=== PATIENT | female | born 1995 | race Caucasian/White ===

== ENCOUNTER 2020-08-13 13:53 | Emergency (ER) | payer OTHER, SELFPAY ==
[2020-08-13 13:59] VITALS: BP 143/93; PULSE 116; RESP 20; TEMP 36.8; O2SAT 99
[2020-08-13 15:43] VITALS: PULSE 119
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
[2020-08-13] MEDS: SODIUM CHLORIDE 0.9% IV 1,000 ML 999 ML IV CONT (16:06)
[2020-08-13] MEDS: FAMOTIDINE 20 MG/2 ML VIAL IV PUSH (16:06)
[2020-08-13] MEDS: METOCLOPRAMIDE HCL INJ 10 MG/2 ML VIAL IV PUSH (16:06)
[2020-08-13 16:25] VITALS: BP 106/75; PULSE 95; RESP 18; O2SAT 99
[2020-08-13 18:00] VITALS: BP 122/79; PULSE 98; RESP 20; O2SAT 98
[2020-08-13 19:12] VITALS: BP 106/57; PULSE 86
== END 2020-08-13 19:12 | disposition home or self-care (01) ==
PROVIDERS: Emergency Provider Emergency Medicine; PCP Family Medicine
DX: R51.9 Headache, unspecified (principal); M54.2 Cervicalgia; Z86.16 Personal history of COVID-19; E07.81 Sick-euthyroid syndrome; E66.9 Obesity, unspecified
CPT/HCPCS: 96361; 96365; 96375; 99284; J0131; J2765; J7030

== ENCOUNTER 2020-11-16 13:29 | Outpatient (CLI) | payer OTHER, SELFPAY ==
--- NOTE | 2020-11-16 13:58 | ECHO_ITS ---
Patient Info Name: Liz Luevano Age: 25 years : 1995 Gender: Female Ht: 68 in Wt: 220 lbs BSA: 2.22 m2 HR: 111 bpm BP: 141 / 93 mmHg Technical Quality: Fair Exam Date: 11/16/2020 2:10 PM Exam Location: [facility] Patient Status: Outpatient Admit Date: 11/16/2020 Staff Ordering Physician: Stone Herrera DO Epic Application Coordinator: Maria Elena Gomez RDCS Attending Provider: Stone Herrera DO Referring Physician: Javier GARCIA; Exam Type: CA echo doppler color flow Study Info Indications - palpitations Complete two-dimensional, color flow and Doppler transthoracic echocardiogram is performed. Summary 1. Complete two-dimensional, color flow and Doppler transthoracic echocardiogram is performed. 2. Left ventricular chamber dimension is normal. 3. Left ventricular systolic function is normal, estimated at 65-70%. 4. The left ventricular diastolic function is normal. 5. E/e' 7 is not elevated. 6. No pulmonary hypertension, estimated pulmonary arterial systolic pressure is 20 mmHg. Left Ventricle E/e' 7 is not elevated. Left ventricular chamber dimension is normal. Left ventricular systolic function is normal, estimated at 65-70%. The left ventricular diastolic function is normal. Right Ventricle Right ventricular chamber dimension is normal. Right ventricular systolic function is normal. Left Atria Left atrial chamber dimension is normal. Right Atria Right atrial chamber dimension is normal. Aortic Valve The aortic valve is trileaflet. There is no aortic valve stenosis. There is no aortic valve regurgitation. Pulmonic Valve There is no pulmonic regurgitation. Mitral Valve There is no mitral valve stenosis. There is no mitral valve regurgitation. Tricuspid Valve There is no tricuspid valve regurgitation. No pulmonary hypertension, estimated pulmonary arterial systolic pressure is 20 mmHg. Pericardium/Pleural There is no pericardial effusion. Inferior Vena Cava Normal inferior vena cava with >50% collapse upon inspiration consistent with normal right atrial pressure, 5 mmHg. Aorta The aortic root size at the sinus of Valsalva is normal. Left Ventricular Outflow Tract Name Value Normal LVOT 2D LVOT Diameter 2.0 cm LVOT Doppler LVOT Peak Gradient 5 mmHg LVOT Mean Gradient 3 mmHg LVOT VTI 20 cm LVOT VTI/AV VTI Ratio 0.9 LVOT Stroke Volume 61 ml LVOT CO 16.3 l/min LVOT CI 7.4 l/min/m2 Pulmonic Valve Name Value Normal PV Doppler PV Peak Gradient 6 mmHg Mitral Valve Name Value
== END 2020-11-16 13:30 | disposition home or self-care (01) ==
LOC: ANHCARD 13:30
PROVIDERS: PCP Family Medicine; Visit Provider Internal Medicine Cardiovascular Disease
DX: R00.2 Palpitations (principal)
CPT/HCPCS: 93306

== ENCOUNTER 2021-04-17 12:33 | Outpatient (CLI) | payer OTHER, SELFPAY ==
--- NOTE | ~2021-04-17 | US_ITS ---
EXAMINATION: US pelvic complete w TV DATE: 04/17/2021 13:16 INDICATION: Excessive menstruation Comparison:Ultrasound dated 03/23/2013 TECHNIQUE: Multiple transabdominal and endovaginal sonographic images of the pelvis performed. FINDINGS: The uterus measures 5.8 x 3.5 x 4.5 cm. The endometrial complex measures 6 mm. There are hypoechoic masses of the uterus consistent with uterine fibroids, largest measuring 2 x 1.6 x 1.8 cm. Right ovary measures 2.7 x 1.6 x 1.5 normal vascularity and follicular changes. Left ovary is not def initely visualized. There is no free fluid in the pelvis. There are no abnormal masses seen on either side. IMPRESSION: 1. Uterine fibroids, largest measuring 2 cm greatest dimension. Reviewed, dictated and finalized at location A. OLOGY NURSE
== END 2021-04-17 12:34 | disposition home or self-care (01) ==
LOC: ANHIMG 12:36
PROVIDERS: PCP Family Medicine; Visit Provider Physician Assistant Medical
DX: N92.0 Excessive and frequent menstruation with regular cycle (principal)
CPT/HCPCS: 76830; 76856

== ENCOUNTER 2021-10-06 11:46 | Emergency (ER) | payer OTHER, SELFPAY ==
[2021-10-06 12:12] VITALS: BP 138/87; PULSE 113; RESP 16; TEMP 36.8; O2SAT 99
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
== END 2021-10-06 12:38 | disposition home or self-care (01) ==
PROVIDERS: Emergency Provider Nurse Practitioner; PCP Family Medicine
DX: S90.811A Abrasion, right foot, initial encounter (principal); W54.8XXA Other contact with dog, initial encounter; Q79.60 Ehlers-Danlos syndrome, unspecified; E66.9 Obesity, unspecified; Z68.34 Body mass index [BMI] 34.0-34.9, adult; Z86.16 Personal history of COVID-19; F41.9 Anxiety disorder, unspecified; F32.A Depression, unspecified
CPT/HCPCS: 99212; G0463

== ENCOUNTER 2023-03-10 07:53 | Outpatient (CLI) | payer OTHER, SELFPAY ==
--- NOTE | 2023-03-10 08:02 | ECG_ITS ---
Measurements Intervals [place] Rate: 102 P: 27 MI: 210 QRS: 4 QRSD: 85 T: 11 QT: 346 QTc: 451 Interpretive Statements SINUS TACHYCARDIA WITH FIRST DEGREE AV BLOCK VOLTAGE CRITERIA FOR LVH BORDERLINE T WAVE ABNORMALITY- INFERIOR LEADS BASELINE ARTIFACT- I, II, III, AVR, AVL, AVF BORDERLINE ECG NO PREVIOUS ECG AVAILABLE FOR COMPARISON Electronically Signed On 03-10-2023 10:01:39 RESEARCH METHODOLOGIST by Stone Herrera D.O.
[2023-03-10 08:27] LABS: Hemoglobin 9.9 g/dL (12.0-15.0); Mean Corpuscular Hemoglobin 24.4 pg (26-34); Mean Corpuscular Volume 81.3 fl (80-100); Mean Platelet Volume 10.7 fl (7.4-10.4); Platelet Count Result 365 k/mm3 (150-375); Red Blood Count 4.06 M/mm3 (4.2-5.4); Red Cell Distribution Width 14.6 % (11.5-14.5)
== END 2023-03-10 07:54 | disposition home or self-care (01) ==
LOC: ANHSURGERY 07:58
PROVIDERS: PCP Family Medicine; Visit Provider Obstetrics & Gynecology
DX: G90.A Postural orthostatic tachycardia syndrome [POTS] (principal); R93.41 Abnormal radiologic findings on diagnostic imaging of renal pelvis, ureter, or bladder; N93.9 Abnormal uterine and vaginal bleeding, unspecified
CPT/HCPCS: 36415; 85027; 93005

== ENCOUNTER 2023-03-13 01:48 | Day surgery (SDC) | payer OTHER, SELFPAY ==
[2023-03-05 10:26] VITALS: BMI 38.2
--- NOTE | 2023-03-05 11:13 | PC.NURSE ---
Report to the Outpatient Waiting Room, entrance under the green pavilion located off [facility], at 0600 on 03-13-23. Planned Procedure Time: 0730. Time changes happen often and if your time is changed the preop area will call you the afternoon before. - You and your visitor will be asked to self-screen and do not enter if you have any COVID symptoms. - A mask is optional within the hospital at this time. Patients may have clear liquids (water, carbonated beverages, clear teas, apple juice) until 3 hours prior to surgery with a maximum of 20 ounces. 0430 - No food from midnight until time of surgery - Infants may have breast milk until 4 hours before surgery, formula 6 hours prior to surgery. - Children will be allowed to drink immediately following surgery. If applicable, please bring a bottle or sippy cup to assist with drinking. Juice, water, soda, and popsicles are readily available. For infants on formula, please bring formula the day of surgery. Pacifiers are allowed. Take the following medications with a SIP of water the morning of surgery: Fluoxetine, control, tylenol if needed DO NOT STOP ANY OF YOUR OTHER PRESCRIPTION MEDICATIONS PRIOR TO SURGERY ?EXCEPT THE FOLLOWING Medications to discontinue per physician: Vitamins and supplements Date to take last dose: 03-10-23 Please no make-up, nail romanian, hairspray, perfume, deodorant, or body powder the day of surgery. No jewelry (including any body piercings) or valuables the day of surgery, leave them at home. Please take a shower or bath the night before, or the morning of, surgery with an antibacterial soap. Wear comfortable, loose fitting clothing. Children are encouraged to wear pajamas. - Jewelry must be removed prior to entering the operating room. Rings and piercings that are not removed may be cut off. - The hospital will not accept responsibility for valuables. - Please leave all valuables, including medications, at home the day of surgery. If you are going home after surgery, a licensed local driver must drive you home. - NO public transportation without another adult if you receive anesthesia. - We recommend that an adult stay with you for 24 hours following discharge. - We also recommend that you do not drive, make important decision, drink alcoholic beverages, or take any drugs that were not prescribed by your health care provider for at least 24 hours after your discharge time. For Pediatric surgeries, we recommend two adults accompany the child home. Follow any additional instructions given to you from your surgeon. If you or anyone in your household have experienced Covid symptoms in the past week, please notify your surgeon or the nurse liaison at the phone number below for possible testing. Telephone instructions given to Liz Luevano and asked if any additional questions and then verbalized understanding. Patient advised to call surgeon office or pre surgery nurse liaison [phone] if any additional questions.
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
[2023-03-13] VITALS (10 sets, daily range): BP systolic 121–147; BP diastolic 62–96; PULSE 99–120; RESP 14–24; TEMP 36.2–36.9; O2SAT 94–100
[2023-03-13] MEDS: KETOROLAC 15 MG/ML VIAL (*BKC) IV PUSH (06:45)
[2023-03-13] MEDS: LACTATED RINGERS 1,000 ML 30 ML IV CONT ×2 (06:45→08:23)
[2023-03-13] MEDS: ACETAMINOPHEN 500 MG TABLET 1000 MG PO (06:45)
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
--- NOTE | 2023-03-13 07:14 | WPDHPUPDATE1 ---
History and Physical Update Update Date/Time: 03/13/23 07:14 History and Physical has been reviewed, including an updated exam of the patient. There are NO changes in the patient's condition. Risks, benefits, and alternatives have been discussed and questions answered. Patient agrees to proceed with procedure.
[2023-03-13] MEDS: SCOPOLAMINE 1.5 MG PATCH TRANSDERM (07:21)
--- NOTE | 2023-03-13 08:18 | W.PM.PROC2 ---
Procedure Note - Detailed Date of Procedure 03/13/23 Pre-op Diagnosis 1. Menometrorrhagia 2. Undesired fertility Post-op Diagnosis Same Procedure Performed 1. Hysteroscopy with uterine curettings 2. Endometrial ablation 3. Bilateral salpingectomy Surgeon Efren Loya MD Anesthesia General Findings Uterus tubes ovaries without abnormality Description of Procedure Patient prepped draped usual manner for this procedure. Instruments attach the cervix for uterine mobility throughout the case. Periumbilical and lower trocar incisions were made and trocars were placed under direct visualization. The mesial salpinx was cauterized and cut bilaterally and the tubes removed without difficulty. There was no bleeding. Gas was allowed to escape, trocars removed, and incisions approximated using 4-0 Monocryl. Attention was then placed to the cervix which was dilated to allow the hysteroscope to be placed. Hysteroscopic exam revealed no significant abnormalities, curetting was obtained, and Colleen instrument was placed and cavity assessment performed. Instrument was activated, at the end of the procedure hysteroscopic exam again used to inspect cavity with no abnormalities noted. Patient was then sent to recovery room in stable condition. Estimated Blood Loss 10 Drains No Packing No Pathology Yes Complications No immediate complications Condition Stable Disposition PACU [facility] Billing Surgery - Charge Forward: Surgery Billing
[2023-03-13] MEDS: fentaNYL CITRATE INJ (*CRX) 100 MCG/2 ML VIAL 25 MCG IV PUSH ×8 (08:50→09:23)
[2023-03-13] MEDS: oxyCODONE HCL (*CRX) 5 MG TAB IR PO (09:45)
== END 2023-03-13 10:25 | disposition home or self-care (01) ==
PROVIDERS: PCP Family Medicine; Visit Provider Obstetrics & Gynecology
PROC: 0U5B8ZZ Destruction of Endometrium, Via Natural or Artificial Opening Endoscopic (ICD-10-PCS; CPT 58563; principal; 2023-03-13 07:30)
PROC: (CPT 49320; 2023-03-13 07:30)
DX: Z30.2 Encounter for sterilization (principal); N87.9 Dysplasia of cervix uteri, unspecified; N92.0 Excessive and frequent menstruation with regular cycle; F41.9 Anxiety disorder, unspecified; F32.A Depression, unspecified; Q79.60 Ehlers-Danlos syndrome, unspecified; E07.81 Sick-euthyroid syndrome; F12.90 Cannabis use, unspecified, uncomplicated; Z82.49 Family history of ischemic heart disease and other diseases of the circulatory system; Z80.0 Family history of malignant neoplasm of digestive organs; E66.9 Obesity, unspecified; Z68.38 Body mass index [BMI] 38.0-38.9, adult
CPT/HCPCS: 58563; 58661; 88302; 88305; 88313; 88342; A9270; J0330; J1100; J1885; J2250; J2405; J2704; J3010; J7030; J7120

== ENCOUNTER 2023-10-23 11:13 | Outpatient (CLI) | payer OTHER, SELFPAY ==
--- NOTE | ~2023-10-23 | US_ITS ---
EXAMINATION: US pelvic complete w TV DATE: 10/23/2023 13:34 INDICATION: Abnormal uterine and vaginal bleeding TECHNIQUE: Multiple transabdominal and endovaginal sonographic images of the pelvis were obtained. COMPARISON: 08/20/2023 FINDINGS: The uterus measures 7.4 x 3.9 x 5.6 cm. The endometrial complex measures 6 mm in thickness. No inter abby change in a 2.1 x 1.8 x 1.7 cm hypoechoic fibroid at the uterine fundus. There are prominent bila teral parametrial vessels. The right and left ovaries are not visualized. There is no free fluid in t he pelvis. IMPRESSION: 1. Unchanged 2.1 cm fibroid at the uterine fundus. Reviewed, dictated and finalized at location A.
[2023-10-23 11:31] LABS: Basophils Absolute Auto 0.1 K/mm3 (0.0-0.1); Basophils Percent Auto 0.6 % (0.2-1.2); Eosinophils Absolute Auto 0.1 K/mm3 (0-0.3); Eosinophils Percent Auto 1.3 % (0-4.4); Hematocrit 36.1 % (37.0-47.0); Hemoglobin 11.3 g/dL (12.0-15.0); Immature Granulocyte Absolute 0.02 K/mm3 (0.00-0.031); Immature Granulocyte Percent A 0.2 % (0-0.5); Lymphocytes Absolute Auto 3.19 K/mm3 (0.9-3.2); Lymphocytes Percent Auto 36.5 % (18.3-44.2); Mean Corpuscular HGB Conc 31.3 g/dl (32-36); Mean Corpuscular Hemoglobin 25.9 pg (26-34); Mean Corpuscular Volume 82.8 fl (80-100); Mean Platelet Volume 10.7 fl (7.4-10.4); Monocytes Absolute Auto 0.5 K/mm3 (0.1-0.6); Monocytes Percent Auto 5.6 % (2.6-8.5); Neutrophils Absolute Auto 4.9 K/mm3 (1.3-6.7); Neutrophils Percent Auto 55.8 % (45.5-73.1); Platelet Count Result 301 k/mm3 (150-375); Red Blood Count 4.36 M/mm3 (4.2-5.4); Red Cell Distribution Width 15.6 % (11.5-14.5); White Blood Count 8.7 K/mm3 (4.5-10.0)
== END 2023-10-23 11:14 | disposition home or self-care (01) ==
PROVIDERS: PCP Family Medicine; Visit Provider Obstetrics & Gynecology
DX: N92.0 Excessive and frequent menstruation with regular cycle (principal); N93.9 Abnormal uterine and vaginal bleeding, unspecified; N99.85 Post endometrial ablation syndrome; D25.9 Leiomyoma of uterus, unspecified
CPT/HCPCS: 36415; 76830; 76856; 85025

== ENCOUNTER 2023-10-24 11:08 | Outpatient (CLI) | payer OTHER, SELFPAY | END 2023-10-24 11:09 | disposition home or self-care (01) | LOC: ANHSURGERY 11:13 | PROVIDERS: Visit Provider Obstetrics & Gynecology | DX: N92.0 Excessive and frequent menstruation with regular cycle (principal); Z01.818 Encounter for other preprocedural examination | CPT/HCPCS: 36415; 86850; 86900; 86901 ==

== ENCOUNTER 2023-10-30 01:04 | Day surgery (SDC) | payer OTHER, SELFPAY ==
[2023-10-23 13:14] VITALS: BMI 41.8
--- NOTE | 2023-10-23 13:16 | PC.NURSE ---
Report to the Outpatient Waiting Room, entrance under the green pavilion located off [facility], at time _0615_ on date _[id number]_. Planned Procedure Time: _0815_. Time changes happen often and if your time is changed the preop area will call you the afternoon before. - You and your visitor will be asked to self-screen and do not enter if you have any COVID symptoms. - A mask is optional within the hospital at this time. Patients may have clear liquids (water, carbonated beverages, clear teas, apple juice) until 3 hours prior to surgery with a maximum of 20 ounces. - No food from midnight until time of surgery Take the following medications with a SIP of water the morning of surgery: ___Fluoxetine DO NOT STOP ANY OF YOUR OTHER PRESCRIPTION MEDICATIONS PRIOR TO SURGERY ?EXCEPT THE FOLLOWING Medications to discontinue per physician Vitamin d3____ Date to take last piag__[id number] Please no make-up, nail cuban, hairspray, perfume, deodorant, or body powder the day of surgery. No jewelry (including any body piercings) or valuables the day of surgery, leave them at home. Please take a shower or bath the night before, or the morning of, surgery with an antibacterial soap. Wear comfortable, loose fitting clothing. - Jewelry must be removed prior to entering the operating room. Rings and piercings that are not removed may be cut off. - The hospital will not accept responsibility for valuables. - Please leave all valuables, including medications, at home the day of surgery. If you are going home after surgery, a licensed lumber driver must drive you home. - NO public transportation without another adult if you receive anesthesia. - We recommend that an adult stay with you for 24 hours following discharge. - We also recommend that you do not drive, make important decision, drink alcoholic beverages, or take any drugs that were not prescribed by your health care provider for at least 24 hours after your discharge time. Follow any additional instructions given to you from your surgeon. If you or anyone in your household have experienced Covid symptoms in the past week, please notify your surgeon or the nurse liaison at the phone number below for possible testing. Telephone instructions given to _Liz__and asked if any additional questions and then verbalized understanding. Patient advised to call surgeon office or pre surgery nurse liaison [phone] if any additional questions.
[2023-10-30] VITALS (11 sets, daily range): BP systolic 111–168; BP diastolic 60–96; PULSE 91–121; RESP 12–34; TEMP 36.3–37.6; O2SAT 92–100
[2023-10-30] MEDS: LACTATED RINGERS 1,000 ML 30 ML IV CONT ×2 (06:20→10:05)
[2023-10-30] MEDS: ACETAMINOPHEN 500 MG TABLET 1000 MG PO (06:27)
[2023-10-30] MEDS: KETOROLAC 15 MG/ML VIAL (*BKC) IV PUSH (06:27)
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
[2023-10-30] MEDS: SCOPOLAMINE 1 MG PATCH 1 PATCH TRANSDERM (07:31)
--- NOTE | 2023-10-30 08:24 | WPDHPUPDATE1 ---
History and Physical Update Update Date/Time: 10/30/23 08:24 History and Physical has been reviewed, including an updated exam of the patient. There are NO changes in the patient's condition. Risks, benefits, and alternatives have been discussed and questions answered. Patient agrees to proceed with procedure.
[2023-10-30] MEDS: ceFAZolin 2 GM/D5W 50 ML 2 GM/50 ML BAG IVPB (08:34)
--- NOTE | 2023-10-30 10:02 | W.PM.PROC2 ---
Procedure Note - Detailed Date of Procedure 10/30/23 Pre-op Diagnosis 1. Menometrorrhagia 2. Dysmenorrhea 3. Failed endometrial ablation Post-op Diagnosis Same Procedure Performed Robotic assisted laparoscopic total hysterectomy with ovarian preservation Surgeon Efren Loya MD Anesthesia General Findings Tubes surgically absent, ovaries without abnormality. Uterus mildly enlarged and boggy consistent with adenomyosis. Description of Procedure Patient prepped and draped usual manner for this procedure. Cervical instruments were placed for uterine mobility throughout the case. Abdominal trocar sites were marked and trocars placed under direct visualization. These trocars were then attached to the de Yadi system. Pelvis was inspected and round ligaments were cauterized and cut, anterior portion dissected to develop the bladder flap. Posterior portion dissected to skeletonize the uterine vessels. These vessels were then cauterized and cut. Anterior colpotomy incision was made this was carried circumferentially to separate the cervix from the vagina. Uterus was delivered into the vagina. There was no bleeding at this point. Vaginal cuff was closed using V lock suture from the right angle to the midline with good approximation and hemostasis noted. Irrigation was undertaken. Marcus was placed over the incision on the vagina empirically. Of note there was fluid in the cul-de-sac which was slightly tinged at the beginning of the case and this was initially sent for culture and cytology. Estimated Blood Loss 100 Drains No Packing No Pathology Yes Complications No immediate complications Condition Stable Disposition PACU [facility] Billing Surgery - Charge Forward: Surgery Billing
--- NOTE | 2023-10-30 10:27 | SUR.PHASEI ---
1025: Simple mask removed.
[2023-10-30] MEDS: fentaNYL CITRATE INJ (*CRX) 100 MCG/2 ML VIAL 25 MCG IV PUSH ×7 (10:34→11:23)
[2023-10-30] MEDS: SIMETHICONE 80 MG TAB.CHEW PO ×2 (11:48→17:30)
[2023-10-30] MEDS: KETOROLAC 30 MG/ML VIAL (*BKC) IV PUSH ×3 (11:49→23:18)
[2023-10-30] MEDS: HYDROcodone/acetaminophen (*CRX) 10-325 MG TABLET 1 TAB PO ×3 (11:49→23:18)
[2023-10-30] MEDS: DEXTROSE 5%/0.45% SOD CHL 1,000 ML 125 ML IV CONT (11:49)
--- NOTE | 2023-10-30 16:49 | PC.NURSE ---
Dr. Loya here to see patient.
[2023-10-30] MEDS: HYDROcodone/acetaminophen (*CRX) 5-325 MG TABLET 1 TAB PO (20:54)
[2023-10-31] MEDS: HYDROcodone/acetaminophen (*CRX) 10-325 MG TABLET 1 TAB PO (02:30)
[2023-10-31 05:15] LABS: Basophils Percent Auto 0.1 % (0.2-1.2); Hemoglobin 10.8 g/dL (12.0-15.0); Immature Granulocyte Absolute 0.05 K/mm3 (0.00-0.031); Immature Granulocyte Percent A 0.4 % (0-0.5); Lymphocytes Absolute Auto 1.33 K/mm3 (0.9-3.2); Lymphocytes Percent Auto 9.3 % (18.3-44.2); Mean Corpuscular HGB Conc 30.9 g/dl (32-36); Mean Corpuscular Hemoglobin 26.2 pg (26-34); Mean Platelet Volume 11.4 fl (7.4-10.4); Monocytes Absolute Auto 0.6 K/mm3 (0.1-0.6); Monocytes Percent Auto 4.2 % (2.6-8.5); Neutrophils Absolute Auto 12.3 K/mm3 (1.3-6.7); Platelet Count Result 325 k/mm3 (150-375); Red Blood Count 4.12 M/mm3 (4.2-5.4); Red Cell Distribution Width 16.1 % (11.5-14.5); White Blood Count 14.3 K/mm3 (4.5-10.0)
[2023-10-31] MEDS: SIMETHICONE 80 MG TAB.CHEW PO (08:58)
[2023-10-31] MEDS: FLUoxetine HCL 20 MG CAPSULE 40 MG PO (08:59)
[2023-10-31] MEDS: CHOLECALCIFEROL 1,000 UNITS TABLET 1000 UNITS PO (08:59)
[2023-10-31] MEDS: PANTOPRAZOLE 40 MG TABLET PO (08:59)
[2023-10-31] MEDS: HYDROcodone/acetaminophen (*CRX) 5-325 MG TABLET 1 TAB PO (08:59)
[2023-10-31] MEDS: IBUPROFEN 600 MG TABLET PO (08:59)
[2023-10-31 09:14] VITALS: BP 125/70; PULSE 105; RESP 18; TEMP 36.6; O2SAT 98
== END 2023-10-31 11:30 | disposition home or self-care (01) ==
LOC: ANHSURGERY 07:32 → ANHOB2 11:33
PROVIDERS: Visit Provider Obstetrics & Gynecology
PROC: (CPT 58570; principal; 2023-10-30 08:15)
DX: N92.0 Excessive and frequent menstruation with regular cycle (principal); N99.85 Post endometrial ablation syndrome; F41.8 Other specified anxiety disorders; N80.03 Adenomyosis of the uterus; D25.9 Leiomyoma of uterus, unspecified
CPT/HCPCS: 58570; S2900; 36415; 85025; 87070; 87075; 87205; 88108; 88305; 88307; 99199; A9270; J0690; J1100; J1170; J1885; J2250; J2405; J2704; J3010; J7030; J7120